=== PATIENT | male | born 1990 | race Caucasian/White ===

== ENCOUNTER 2020-12-25 01:17 | Emergency (ER) | payer OTHER ==
[2020-12-25] MEDS ORDERED: Lidocaine 1% (PF) 30 ML VIAL ONE (04:05)
== END 2020-12-25 11:18 | disposition home or self-care (01) ==
LOC: ERS 01:17
DX: S02.2XXA Fracture of nasal bones, initial encounter for closed fracture (principal); S02.85XA Fracture of orbit, unspecified, initial encounter for closed fracture; S02.19XA Other fracture of base of skull, initial encounter for closed fracture; S01.81XA Laceration without foreign body of other part of head, initial encounter; F17.200 Nicotine dependence, unspecified, uncomplicated; Y04.0XXA Assault by unarmed brawl or fight, initial encounter
CPT/HCPCS: 12013; 70450; 70486; 72125; J2001